=== PATIENT | male | born 1950 | race Two or more races ===

== ENCOUNTER → 2017-01-31 | Outpatient (CLI) | payer MEDICARE | END | disposition home or self-care (01) | LOC: CFH 15:18 | PROVIDERS: ATTEND Physician Assistant Medical | DX: M48.06 Spinal stenosis, lumbar region (principal); M43.27 Fusion of spine, lumbosacral region; M47.897 Other spondylosis, lumbosacral region | CPT/HCPCS: 72131 ==

== ENCOUNTER 2017-09-03 11:49 | Day surgery (SDC) | payer MEDICARE ==
[~2017-09-03] VITALS: Ht 180.3 cm; Wt 80.5 kg
[2017-09-03] MEDS ORDERED: SODIUM CHLORIDE 0.9% 1,000 ML IV SCH (12:29)
[2017-09-03] MEDS ORDERED: TEMAZEPAM PO (12:34)
[2017-09-03] MEDS ORDERED: TRAZODONE PO (12:34)
[2017-09-03] MEDS ORDERED: BACL-19 PO (12:34)
[2017-09-03] MEDS ORDERED: ROPI1TAB PO (12:34)
[2017-09-03] MEDS ORDERED: OXYC10TA47 PO (12:34)
[2017-09-03 12:35] VITALS: BP 174/95
[2017-09-03] MEDS ORDERED: PLEASE ENTER HEIGHT AND WEIGHT MC SCH (13:00)
== END 2017-09-03 16:18 ==
LOC: OUT 11:49
PROVIDERS: ATTEND Physician Assistant
DX: M51.36 Other intervertebral disc degeneration, lumbar region (principal); Z87.891 Personal history of nicotine dependence; Z88.1 Allergy status to other antibiotic agents; Z98.890 Other specified postprocedural states
CPT/HCPCS: 62284; 72110; 72126; Q9967

== ENCOUNTER 2017-09-18 11:46 | Day surgery (SDC) | payer MEDICARE ==
[~2017-09-18] VITALS: Ht 180.3 cm; Wt 80.1 kg
[~2017-09-18 11:46] MED LIST: BACL-19 PO; OXYC10TA47 PO; ROPI1TAB PO; TEMAZEPAM PO; TRAZODONE PO
[2017-09-18] MEDS ORDERED: SODIUM CHLORIDE 0.9% 1,000 ML IV SCH (12:19)
[2017-09-18 12:21] VITALS: BP 107/71
[2017-09-18] MEDS ORDERED: LIDOCAINE-MPF 1%, 5ML ONE ×2 (13:01)
[2017-09-18] MEDS ORDERED: OMNIPAQUE 180 MG/ML, 10ML VIAL ONE (13:56)
== END 2017-09-18 17:05 ==
LOC: OUT 11:46
PROVIDERS: ATTEND Physician Assistant
DX: M51.36 Other intervertebral disc degeneration, lumbar region (principal); M48.061 Spinal stenosis, lumbar region without neurogenic claudication; J45.909 Unspecified asthma, uncomplicated; Z87.39 Personal history of other diseases of the musculoskeletal system and connective tissue; Z98.890 Other specified postprocedural states
CPT/HCPCS: 62284; 72132; J7030; Q9965

== ENCOUNTER → 2017-10-09 | Outpatient (CLI) | payer MEDICARE ==
[~2017-10-09] MED LIST changes: +OXYC-306 PO
[2017-10-09 14:51] LABS: BASOPHILS # (AUTO) 0.05 x10^3/uL (0-0.1); BASOPHILS % (AUTO) 1 % (0-1); EOSINOPHILS # (AUTO) 0.06 x10^3/uL (0-0.4); EOSINOPHILS % (AUTO) 1 % (1-7); LYMPHOCYTES # (AUTO) 1.21 x10^3/uL (1-3.4); LYMPHOCYTES % (AUTO) 12 % (22-44); MD NO; MEAN CORPUSCULAR HEMOGLOBIN 31.7 pg (27.5-34.5); MEAN CORPUSCULAR HGB CONC 34.4 g/dL (33.2-36.2); MEAN CORPUSCULAR VOLUME 92.2 fL (81-97); MEAN PLATELET VOLUME 9.2 fL (7.4-10.4); MONOCYTES # (AUTO) 0.38 x10^3/uL (0.2-0.8); MONOCYTES % (AUTO) 4 % (2-9); NEUTROPHILS # (AUTO) 8.59 x10^3/uL (1.8-6.8); NEUTROPHILS % (AUTO) 84 % (42-75); PLATELET COUNT 256 x10^3/uL (130-400); RED BLOOD COUNT 5.04 x10^6/uL (4.38-5.82); RED CELL DISTRIBUTION WIDTH 13.8 % (9.4-14.8)
[2017-10-09 14:59] LABS: ANION GAP 6 mmol/L (5-15); CALCIUM 9.7 mg/dL (8.5-10.1); CHLORIDE 110 mmol/L (98-107)
[2017-10-09 15:00] LABS: CREATININE 0.77 mg/dL (0.7-1.3)
[2017-10-09 15:08] LABS: INTERNATIONAL NORMALIZED RATIO 1.02 (0.93-1.1); PROTHROMBIN TIME 10.6 Seconds (9.6-11.5)
== END | disposition home or self-care (01) ==
LOC: STAR 13:15
PROVIDERS: ATTEND Neurological Surgery
DX: Z01.818 Encounter for other preprocedural examination (principal); R06.02 Shortness of breath; M51.36 Other intervertebral disc degeneration, lumbar region; M48.061 Spinal stenosis, lumbar region without neurogenic claudication
CPT/HCPCS: 36415; 71046; 80048; 85025; 85610; 85730; 93005

== ENCOUNTER → 2017-10-11 | Outpatient (CLI) | payer MEDICARE ==
[~2017-10-11] MED LIST changes: +ALBU2.5V11 NEB; +DIPH50CA PO; +ONDA8TAB15 PO; +OXYC1TAB7 PO; +SENN-31 PO
[2017-10-11 15:00] LABS: MICROSCOPIC NOT IND
[2017-10-11 15:02] LABS: CULTURE INDICATED? NO
== END | disposition home or self-care (01) ==
LOC: STAR 14:27
PROVIDERS: ATTEND Neurological Surgery
DX: Z01.818 Encounter for other preprocedural examination (principal); M48.061 Spinal stenosis, lumbar region without neurogenic claudication; M51.36 Other intervertebral disc degeneration, lumbar region
CPT/HCPCS: 81003

== ENCOUNTER 2017-10-15 13:33 | Inpatient (IN) | payer MEDICARE ==
[2017-10-09 14:00] VITALS: BP 116/81
[~2017-10-15] VITALS: Ht 180.3 cm; Wt 82.1 kg
[~2017-10-15 13:33] MED LIST changes: -ALBU2.5V11 NEB; +BACITRACIN 50,000 UNIT ONE; +BUPIVACAINE/PF 0.25% ONE; -DIPH50CA PO; +EPINEPHRINE 1 MG/ML, 1ML ONE; +FENTANYL PF 250 MCG/5ML ONE; +MIDAZOLAM 1 MG/ML, 2ML ONE; -ONDA8TAB15 PO; -OXYC1TAB7 PO; -SENN-31 PO; +THROMBIN 5,000 UNIT VIAL TP ONE
[2017-10-15] MEDS ORDERED: FAMOTIDINE 20 MG TABLET PO ONE (14:00)
[2017-10-15] MEDS ORDERED: ACETAMINOPHEN 500 MG TABLET PO ONE (14:00)
[2017-10-15] MEDS ORDERED: METOCLOPRAMIDE 10MG TABLET PO ONE (14:00)
[2017-10-15] MEDS ORDERED: GABAPENTIN 300 MG CAPSULE PO ONE (14:00)
[2017-10-15] MEDS ORDERED: DIAZEPAM 5 MG TABLET PO ONE (14:00)
[2017-10-15] MEDS ORDERED: LACTATED RINGERS 1,000 ML IV SCH (14:16)
[2017-10-15] MEDS ORDERED: EPHEDRINE 50 MG/ML, 1ML ONE (14:32)
[2017-10-15] MEDS ORDERED: SUGAMMADEX 200 MG/2 ML IVPush ONE (14:32)
[2017-10-15] MEDS ORDERED: PROPOFOL 10 MG/ML, 20ML ONE (14:32)
[2017-10-15] MEDS ORDERED: KETAMINE 10 MG/ML, 20ML ONE (14:32)
[2017-10-15] MEDS ORDERED: DEXAMETHASONE 4 MG/ML, 1ML ONE (14:32)
[2017-10-15] MEDS ORDERED: ROCURONIUM 10MG/ML,5ML ONE (14:32)
[2017-10-15] MEDS ORDERED: VANCOMYCIN 1,000 MG ONE (15:15)
[2017-10-15] MEDS ORDERED: BUPIVACAINE/PF 0.25% ONE (15:15)
[2017-10-15] MEDS ORDERED: morphine SULFATE 10 MG/ML, 1ML IVPush PRN (16:00)
[2017-10-15] MEDS ORDERED: DIAZEPAM 5 MG/ML, 2ML IVPush PRN (16:00)
[2017-10-15] MEDS ORDERED: MAGNESIUM HYDROXIDE 8%, 30ML UDC PO PRN (16:00)
[2017-10-15] MEDS ORDERED: ZOLPIDEM 5MG TABLET PO PRN (16:00)
[2017-10-15] MEDS ORDERED: DIPHENHYDRAMINE 50 MG CAPSULE PO PRN (16:00)
[2017-10-15] MEDS ORDERED: PHARMACY MAY ADJ FOR RENAL FX MC PRN (16:00)
[2017-10-15] MEDS ORDERED: ONDANSETRON ODT 8 MG PO PRN (16:00)
[2017-10-15] MEDS ORDERED: HYDROcodone/APAP 5/325 TABLET PO PRN (16:00)
[2017-10-15] MEDS ORDERED: DIPHENHYDRAMINE 50 MG/ML, 1ML IVPush PRN (16:00)
[2017-10-15] MEDS ORDERED: BISACODYL 10 MG SUPP PR PRN (16:00)
[2017-10-15] MEDS ORDERED: PROMETHAZINE 25 MG/ML, 1ML IM PRN (16:00)
[2017-10-15] MEDS ORDERED: ONDANSETRON 2MG/ML, 2ML IVPush PRN (16:00)
[2017-10-15] MEDS ORDERED: OXYcodone 5 MG/5 ML ORAL.SOL UDC PO PRN (16:00)
[2017-10-15] MEDS ORDERED: MORPHINE SULFATE 4 MG/ML, 1ML IVPush PRN (16:00)
[2017-10-15] MEDS ORDERED: ALBUTEROL SULFATE 2.5 MG/3 ML NPPB PRN (16:00)
[2017-10-15] MEDS ORDERED: LABETALOL 5MG/ML, 20ML IVPush PRN (16:00)
[2017-10-15] MEDS ORDERED: OXYcodone 5 MG/5 ML ORAL.SOL UDC ONE ×2 (16:30)
[2017-10-15] MEDS ORDERED: FENTANYL PF 100 MCG/2ML ONE (16:40)
[2017-10-15] MEDS: FENTANYL PF 100 MCG/2ML IV PRN ×2 (16:44→17:10)
[2017-10-15 20:12] VITALS: BP 128/59
[2017-10-15] MEDS: OXYcodone/APAP 5/325MG TABLET PO PRN (20:17)
[2017-10-15] MEDS: ROPINIROLE 1MG TABLET PO SCH (21:50)
[2017-10-15] MEDS: BACLOFEN 10 MG TABLET PO SCH (21:51)
[2017-10-16 00:14] VITALS: BP 102/65
[2017-10-16] MEDS: CEFAZOLIN PMX 1GM/50ML 50 ML IVPB SCH ×2 (00:23→08:15)
[2017-10-16] MEDS: OXYcodone/APAP 5/325MG TABLET PO PRN ×5 (02:35→21:01)
[2017-10-16 04:11] VITALS: BP 103/64
[2017-10-16 05:06] LABS: BASOPHILS % (AUTO) 0 % (0-1); EOSINOPHILS % (AUTO) 0 % (1-7); LYMPHOCYTES # (AUTO) 0.68 x10^3/uL (1-3.4); LYMPHOCYTES % (AUTO) 8 % (22-44); MD NO; MEAN CORPUSCULAR HEMOGLOBIN 31.6 pg (27.5-34.5); MEAN CORPUSCULAR HGB CONC 34.1 g/dL (33.2-36.2); MEAN CORPUSCULAR VOLUME 92.6 fL (81-97); MEAN PLATELET VOLUME 9.8 fL (7.4-10.4); MONOCYTES # (AUTO) 0.27 x10^3/uL (0.2-0.8); MONOCYTES % (AUTO) 3 % (2-9); NEUTROPHILS # (AUTO) 8.09 x10^3/uL (1.8-6.8); NEUTROPHILS % (AUTO) 90 % (42-75); PLATELET COUNT 209 x10^3/uL (130-400); RED BLOOD COUNT 4.47 x10^6/uL (4.38-5.82); RED CELL DISTRIBUTION WIDTH 13.9 % (9.4-14.8)
[2017-10-16 05:15] LABS: CHLORIDE 109 mmol/L (98-107)
[2017-10-16 05:33] LABS: ANION GAP 11 mmol/L (5-15); CALCIUM 9.3 mg/dL (8.5-10.1); CREATININE 0.96 mg/dL (0.7-1.3)
[2017-10-16] MEDS: BACLOFEN 10 MG TABLET PO SCH ×2 (08:14→21:01)
[2017-10-16] MEDS: ROPINIROLE 1MG TABLET PO SCH ×2 (08:14→21:01)
[2017-10-16 08:19] VITALS: BP 108/68
[2017-10-16 12:27] VITALS: BP 100/59
[2017-10-16] MEDS ORDERED: ENOXAPARIN 40 MG/0.4 ML SQ SCH (16:00)
[2017-10-16 19:40] VITALS: BP 123/83
[2017-10-16] MEDS: SENNA/DOCUSATE TABLET PO PRN (22:40)
[2017-10-17 00:51] VITALS: BP 130/76
[2017-10-17 03:38] VITALS: BP 132/86
[2017-10-17 05:59] LABS: BASOPHILS # (AUTO) 0.04 x10^3/uL (0-0.1); BASOPHILS % (AUTO) 0 % (0-1); EOSINOPHILS # (AUTO) 0.03 x10^3/uL (0-0.4); EOSINOPHILS % (AUTO) 0 % (1-7); LYMPHOCYTES # (AUTO) 2.25 x10^3/uL (1-3.4); LYMPHOCYTES % (AUTO) 23 % (22-44); MD NO; MEAN CORPUSCULAR HEMOGLOBIN 31.4 pg (27.5-34.5); MEAN CORPUSCULAR VOLUME 92.4 fL (81-97); MEAN PLATELET VOLUME 9.8 fL (7.4-10.4); MONOCYTES # (AUTO) 0.63 x10^3/uL (0.2-0.8); MONOCYTES % (AUTO) 6 % (2-9); NEUTROPHILS # (AUTO) 6.77 x10^3/uL (1.8-6.8); NEUTROPHILS % (AUTO) 70 % (42-75); PLATELET COUNT 203 x10^3/uL (130-400); RED BLOOD COUNT 4.35 x10^6/uL (4.38-5.82)
[2017-10-17 06:08] LABS: ANION GAP 6 mmol/L (5-15); CALCIUM 8.9 mg/dL (8.5-10.1); CHLORIDE 111 mmol/L (98-107); CREATININE 0.87 mg/dL (0.7-1.3)
[2017-10-17] MEDS: OXYcodone/APAP 5/325MG TABLET PO PRN ×4 (06:09→21:45)
[2017-10-17 08:05] VITALS: BP 129/87
[2017-10-17] MEDS: BACLOFEN 10 MG TABLET PO SCH ×2 (08:17→21:09)
[2017-10-17] MEDS: ROPINIROLE 1MG TABLET PO SCH ×2 (08:17→21:09)
[2017-10-17 10:37] VITALS: BP 133/85
[2017-10-17 10:49] LABS: TROPONIN I < 0.015 ng/mL (0.000-0.045)
[2017-10-17] MEDS ORDERED: HEPARIN 1,000 UNITS/ML, 10ML ONE (14:28)
[2017-10-17] MEDS ORDERED: MIDAZOLAM 1 MG/ML, 5ML ONE (14:28)
[2017-10-17] MEDS ORDERED: FENTANYL PF 100 MCG/2ML ONE (14:28)
[2017-10-17] MEDS ORDERED: TICAGRELOR 90 MG TABLET ONE (14:28)
[2017-10-17] MEDS ORDERED: VERAPAMIL 2.5 MG/ML, 2ML ONE (14:28)
[2017-10-17] MEDS ORDERED: BIVALIRUDIN 250 MG ONE (14:28)
[2017-10-17] MEDS ORDERED: LIDOCAINE 2%, 2ML ONE (14:29)
[2017-10-17 15:44] VITALS: BP 154/87
[2017-10-17 16:19] LABS: TROPONIN I < 0.015 ng/mL (0.000-0.045)
[2017-10-17 20:06] VITALS: BP 135/85
[2017-10-17] MEDS: ATORVASTATIN 80 MG TABLET PO SCH (21:09)
[2017-10-17] MEDS: SENNA/DOCUSATE TABLET PO PRN (21:13)
[2017-10-18 01:37] VITALS: BP 113/69
[2017-10-18 05:36] LABS: BASOPHILS # (AUTO) 0.06 x10^3/uL (0-0.1); BASOPHILS % (AUTO) 1 % (0-1); EOSINOPHILS # (AUTO) 0.08 x10^3/uL (0-0.4); EOSINOPHILS % (AUTO) 1 % (1-7); LYMPHOCYTES # (AUTO) 1.71 x10^3/uL (1-3.4); LYMPHOCYTES % (AUTO) 22 % (22-44); MD NO; MEAN CORPUSCULAR HEMOGLOBIN 31.2 pg (27.5-34.5); MEAN CORPUSCULAR HGB CONC 33.6 g/dL (33.2-36.2); MEAN PLATELET VOLUME 9.6 fL (7.4-10.4); MONOCYTES % (AUTO) 8 % (2-9); NEUTROPHILS # (AUTO) 5.28 x10^3/uL (1.8-6.8); NEUTROPHILS % (AUTO) 68 % (42-75); PLATELET COUNT 204 x10^3/uL (130-400); RED BLOOD COUNT 4.49 x10^6/uL (4.38-5.82); RED CELL DISTRIBUTION WIDTH 14.1 % (9.4-14.8)
[2017-10-18 05:41] LABS: CHLORIDE 108 mmol/L (98-107)
[2017-10-18 05:46] LABS: ANION GAP 7 mmol/L (5-15); CALCIUM 8.5 mg/dL (8.5-10.1); CREATININE 0.89 mg/dL (0.7-1.3)
[2017-10-18] MEDS: OXYcodone/APAP 5/325MG TABLET PO PRN ×4 (05:53→22:10)
[2017-10-18] MEDS: ROPINIROLE 1MG TABLET PO SCH ×2 (09:32→21:42)
[2017-10-18] MEDS: BACLOFEN 10 MG TABLET PO SCH ×2 (09:32→21:42)
[2017-10-18 09:39] VITALS: BP 132/82
[2017-10-18 14:20] VITALS: BP 166/80
[2017-10-18 21:03] VITALS: BP 129/79
[2017-10-18] MEDS ORDERED: MAGNESIUM HYDROXIDE 8%, 30ML UDC PO ONE (21:30)
[2017-10-18] MEDS: ATORVASTATIN 80 MG TABLET PO SCH (21:42)
[2017-10-19 01:27] VITALS: BP 140/93
[2017-10-19 05:02] LABS: BASOPHILS # (AUTO) 0.03 x10^3/uL (0-0.1); BASOPHILS % (AUTO) 0 % (0-1); EOSINOPHILS # (AUTO) 0.11 x10^3/uL (0-0.4); EOSINOPHILS % (AUTO) 2 % (1-7); LYMPHOCYTES # (AUTO) 1.73 x10^3/uL (1-3.4); LYMPHOCYTES % (AUTO) 25 % (22-44); MD NO; MEAN CORPUSCULAR HEMOGLOBIN 31.7 pg (27.5-34.5); MEAN CORPUSCULAR HGB CONC 34.4 g/dL (33.2-36.2); MEAN CORPUSCULAR VOLUME 92.1 fL (81-97); MEAN PLATELET VOLUME 10.1 fL (7.4-10.4); MONOCYTES % (AUTO) 8 % (2-9); NEUTROPHILS # (AUTO) 4.61 x10^3/uL (1.8-6.8); NEUTROPHILS % (AUTO) 65 % (42-75); PLATELET COUNT 212 x10^3/uL (130-400); RED BLOOD COUNT 4.67 x10^6/uL (4.38-5.82); RED CELL DISTRIBUTION WIDTH 13.8 % (9.4-14.8)
[2017-10-19 05:12] LABS: ANION GAP 6 mmol/L (5-15); CALCIUM 8.5 mg/dL (8.5-10.1); CHLORIDE 107 mmol/L (98-107)
[2017-10-19 05:14] LABS: CREATININE 0.71 mg/dL (0.7-1.3)
[2017-10-19] MEDS: OXYcodone/APAP 5/325MG TABLET PO PRN ×4 (08:56→20:48)
[2017-10-19] MEDS: ROPINIROLE 1MG TABLET PO SCH ×2 (08:56→20:48)
[2017-10-19] MEDS: BACLOFEN 10 MG TABLET PO SCH ×2 (08:57→20:48)
[2017-10-19] MEDS ORDERED: MAGNESIUM CITRATE 300ML ORAL SOL PO PRN (09:00)
[2017-10-19 09:16] VITALS: BP 150/79
[2017-10-19] MEDS ORDERED: BISACODYL 10 MG SUPP PR PRN (11:00)
[2017-10-19 13:00] VITALS: BP 115/73
[2017-10-19 20:00] VITALS: BP 117/78
[2017-10-19] MEDS: ATORVASTATIN 80 MG TABLET PO SCH (20:48)
[2017-10-20 01:39] VITALS: BP 151/82
[2017-10-20] MEDS: OXYcodone/APAP 5/325MG TABLET PO PRN ×2 (02:45→09:04)
[2017-10-20 04:53] LABS: BASOPHILS # (AUTO) 0.03 x10^3/uL (0-0.1); BASOPHILS % (AUTO) 0 % (0-1); EOSINOPHILS # (AUTO) 0.21 x10^3/uL (0-0.4); EOSINOPHILS % (AUTO) 2 % (1-7); LYMPHOCYTES # (AUTO) 1.53 x10^3/uL (1-3.4); LYMPHOCYTES % (AUTO) 18 % (22-44); MD NO; MEAN CORPUSCULAR HEMOGLOBIN 31.4 pg (27.5-34.5); MEAN CORPUSCULAR HGB CONC 34.3 g/dL (33.2-36.2); MEAN CORPUSCULAR VOLUME 91.6 fL (81-97); MEAN PLATELET VOLUME 9.9 fL (7.4-10.4); MONOCYTES % (AUTO) 8 % (2-9); NEUTROPHILS # (AUTO) 6.01 x10^3/uL (1.8-6.8); NEUTROPHILS % (AUTO) 71 % (42-75); PLATELET COUNT 216 x10^3/uL (130-400); RED BLOOD COUNT 4.57 x10^6/uL (4.38-5.82); RED CELL DISTRIBUTION WIDTH 13.8 % (9.4-14.8)
[2017-10-20 05:00] LABS: ANION GAP 6 mmol/L (5-15); CHLORIDE 108 mmol/L (98-107); CREATININE 0.93 mg/dL (0.7-1.3)
[2017-10-20 08:21] VITALS: BP 138/78
[2017-10-20] MEDS ORDERED: ALBU2.5V11 NEB (08:30)
[2017-10-20] MEDS ORDERED: DIPH50CA PO (08:32)
[2017-10-20] MEDS ORDERED: ONDA8TAB15 PO (08:33)
[2017-10-20] MEDS ORDERED: OXYC1TAB7 PO (08:34)
[2017-10-20] MEDS ORDERED: SENN-31 PO (08:35)
[2017-10-20] MEDS ORDERED: BACL-19 PO (08:36)
[2017-10-20] MEDS: ROPINIROLE 1MG TABLET PO SCH (09:04)
[2017-10-20] MEDS: BACLOFEN 10 MG TABLET PO SCH (09:05)
== END 2017-10-20 11:15 | disposition home or self-care (01) | DRG 518 ==
LOC: OR 13:33 → ORIP 15:53 → 4NOR 17:57 → 5SO 10-17 09:55
PROVIDERS: ADMIT Neurological Surgery; ATTEND Neurological Surgery
PROC: B01B1ZZ Fluoroscopy of Spinal Cord using Low Osmolar Contrast (ICD-10-PCS; 2017-10-15)
PROC: 00BT0ZZ Excision of Spinal Meninges, Open Approach (ICD-10-PCS; 2017-10-15)
PROC: 01NB0ZZ Release Lumbar Nerve, Open Approach (ICD-10-PCS; principal; 2017-10-15 15:30)
PROC: 4A023N7 Measurement of Cardiac Sampling and Pressure, Left Heart, Percutaneous Approach (ICD-10-PCS; 2017-10-17)
PROC: B2151ZZ Fluoroscopy of Left Heart using Low Osmolar Contrast (ICD-10-PCS; 2017-10-17)
PROC: B2111ZZ Fluoroscopy of Multiple Coronary Arteries using Low Osmolar Contrast (ICD-10-PCS; 2017-10-17)
DX: M48.062 Spinal stenosis, lumbar region with neurogenic claudication (principal); R53.2 Functional quadriplegia; G95.9 Disease of spinal cord, unspecified; I20.0 Unstable angina; E78.5 Hyperlipidemia, unspecified; G89.29 Other chronic pain; M19.90 Unspecified osteoarthritis, unspecified site; M54.16 Radiculopathy, lumbar region; M54.9 Dorsalgia, unspecified; M79.604 Pain in right leg; M79.605 Pain in left leg; M54.5 Low back pain; I10 Essential (primary) hypertension; J45.909 Unspecified asthma, uncomplicated; Z87.891 Personal history of nicotine dependence; Z98.1 Arthrodesis status; Z88.8 Allergy status to other drugs, medicaments and biological substances; Z88.1 Allergy status to other antibiotic agents; Z79.899 Other long term (current) drug therapy; E88.2 Lipomatosis, not elsewhere classified
CPT/HCPCS: 36415; 72100; 80048; 84484; 85025; 93005; 93458; 93970; 99156; C1729; C1769; C1894; J0171; J0583; J0690; J1100; J1644; J1650; J2250; J2704; J3010; J3370; J3490; Q9967

== ENCOUNTER 2018-05-13 08:35 | Observation (INO) | payer MEDICARE ==
[~2018-05-13] VITALS: Ht 182.9 cm; Wt 87.2 kg
[~2018-05-13 08:35] MED LIST changes: +ALBU2.5V11 NEB; -BACITRACIN 50,000 UNIT ONE; -BUPIVACAINE/PF 0.25% ONE; +DIPH50CA PO; -EPINEPHRINE 1 MG/ML, 1ML ONE; -FENTANYL PF 250 MCG/5ML ONE; -MIDAZOLAM 1 MG/ML, 2ML ONE; +ONDA8TAB15 PO; +OXYC1TAB7 PO; +SENN-31 PO; -THROMBIN 5,000 UNIT VIAL TP ONE
--- NOTE | 2018-05-13 09:08 | NUR ---
REPORT TO JANIE BAHENA
--- NOTE | 2018-05-13 09:33 | NUR ---
EXAM BY DR WILLSON. PT IS PAINFREE AT THIS TIME. SKIN EXAMINED. PRESSURE POINTS AT HEELS AND SACRUM APPEAR WNL. SKIN CDI.
[2018-05-13 09:46] LABS: BASOPHILS # (AUTO) 0.04 x10^3/uL (0-0.1); BASOPHILS % (AUTO) 1 % (0-1); EOSINOPHILS % (AUTO) 3 % (1-7); LYMPHOCYTES % (AUTO) 20 % (22-44); MD NO; MEAN CORPUSCULAR HEMOGLOBIN 32.1 pg (27.5-34.5); MEAN CORPUSCULAR HGB CONC 33.6 g/dL (33.2-36.2); MEAN CORPUSCULAR VOLUME 95.6 fL (81-97); MEAN PLATELET VOLUME 8.8 fL (7.4-10.4); MONOCYTES # (AUTO) 0.56 x10^3/uL (0.2-0.8); MONOCYTES % (AUTO) 8 % (2-9); NEUTROPHILS # (AUTO) 4.82 x10^3/uL (1.8-6.8); NEUTROPHILS % (AUTO) 69 % (42-75); PLATELET COUNT 234 x10^3/uL (130-400); RED CELL DISTRIBUTION WIDTH 13.8 % (9.4-14.8)
[2018-05-13 09:56] LABS: INTERNATIONAL NORMALIZED RATIO 1.03 (0.93-1.1); PROTHROMBIN TIME 10.9 Seconds (9.6-11.5)
[2018-05-13 09:57] LABS: ALANINE AMINOTRANSFERASE 45 U/L (12-78); ALBUMIN 3.7 g/dL (3.4-5.0); ANION GAP 7 mmol/L (5-15); CALCIUM 8.8 mg/dL (8.5-10.1); CHLORIDE 111 mmol/L (98-107); CREATININE 0.75 mg/dL (0.7-1.3)
[2018-05-13 10:02] LABS: ALKALINE PHOSPHATASE 98 U/L (45-117); BILIRUBIN,TOTAL 0.4 mg/dL (0.2-1.0); TOTAL PROTEIN 6.6 g/dL (6.4-8.2); TROPONIN I < 0.015 ng/mL (0.000-0.045)
[2018-05-13] MEDS ORDERED: OXYcodone/APAP 5/325MG TABLET ONE (10:48)
--- NOTE | 2018-05-13 10:51 | NUR ---
PT REQUESTING PAIN MEDICATION FOR CHRONIC BACK PAIN. PERCOCET ORD'D AND GIVEN. VSS. PLAN FOR ADMISSION. PT REMAINS PAIN FREE.
[2018-05-13] MEDS ORDERED: OXYcodone/APAP 5/325MG TABLET PO ONE (11:00)
[2018-05-13] MEDS ORDERED: BACLOFEN 10 MG TABLET PO SCH (11:30)
[2018-05-13] MEDS ORDERED: ONDANSETRON 8 MG TABLET PO PRN (12:00)
[2018-05-13] MEDS ORDERED: DIPHENHYDRAMINE 50 MG CAPSULE PO PRN (12:00)
[2018-05-13] MEDS ORDERED: BACLOFEN 10 MG TABLET PO PRN (12:00)
--- NOTE | 2018-05-13 12:09 | NUR ---
REPORT CALLED TO MARGARITA BAHENA
[2018-05-13] MEDS ORDERED: ACETAMINOPHEN 325 MG TABLET PO PRN (12:30)
[2018-05-13] MEDS ORDERED: ONDANSETRON 2MG/ML, 2ML IVPush PRN (12:30)
[2018-05-13] MEDS ORDERED: POLYETHYLENE GLYCOL 17 GM PACKET PO PRN (12:30)
[2018-05-13] MEDS ORDERED: BISACODYL 10 MG SUPP PR PRN (12:30)
[2018-05-13] MEDS ORDERED: DOCUSATE 100 MG CAPSULE PO PRN (12:30)
[2018-05-13] MEDS ORDERED: hydrALAzine 20 MG/ML, 1ML IVPush PRN (12:30)
[2018-05-13 12:51] LABS: HEMOGLOBIN A1C 5.5 % (4.2-6.3)
[2018-05-13 13:01] LABS: FREE T4 (FREE THYROXINE) 1.06 ng/dL (0.76-1.46); TROPONIN I < 0.015 ng/mL (0.000-0.045)
[2018-05-13 13:07] LABS: THYROID STIMULATING HORMONE 0.855 mIU/L (0.358-3.740)
[2018-05-13] MEDS: ENOXAPARIN 40 MG/0.4 ML SQ SCH (13:31)
[2018-05-13 15:32] VITALS: BP 152/87
[2018-05-13] MEDS: OXYcodone/APAP 5/325MG TABLET PO PRN ×2 (16:47→21:28)
[2018-05-13] MEDS ORDERED: TEMAZEPAM 15 MG CAPSULE PO PRN (17:30)
[2018-05-13 18:46] LABS: TROPONIN I < 0.015 ng/mL (0.000-0.045)
[2018-05-13 20:15] VITALS: BP 118/80
[2018-05-13] MEDS: FAMOTIDINE 20 MG TABLET PO SCH (21:19)
[2018-05-13] MEDS: ROPINIROLE 1MG TABLET PO SCH (21:19)
[2018-05-14 00:22] VITALS: BP 126/71
[2018-05-14] MEDS: OXYcodone/APAP 5/325MG TABLET PO PRN ×3 (02:41→12:47)
[2018-05-14 05:52] LABS: BASOPHILS # (AUTO) 0.03 x10^3/uL (0-0.1); BASOPHILS % (AUTO) 0 % (0-1); EOSINOPHILS # (AUTO) 0.27 x10^3/uL (0-0.4); EOSINOPHILS % (AUTO) 3 % (1-7); LYMPHOCYTES # (AUTO) 1.63 x10^3/uL (1-3.4); LYMPHOCYTES % (AUTO) 20 % (22-44); MD NO; MEAN CORPUSCULAR HEMOGLOBIN 32.5 pg (27.5-34.5); MEAN CORPUSCULAR HGB CONC 34.1 g/dL (33.2-36.2); MEAN CORPUSCULAR VOLUME 95.4 fL (81-97); MEAN PLATELET VOLUME 9.4 fL (7.4-10.4); MONOCYTES # (AUTO) 0.63 x10^3/uL (0.2-0.8); MONOCYTES % (AUTO) 8 % (2-9); NEUTROPHILS % (AUTO) 69 % (42-75); PLATELET COUNT 229 x10^3/uL (130-400); RED BLOOD COUNT 4.39 x10^6/uL (4.38-5.82)
[2018-05-14] MEDS ORDERED: ASPIRIN 325 MG TABLET EC PO SCH (06:00)
[2018-05-14 06:09] LABS: CHLORIDE 110 mmol/L (98-107)
[2018-05-14 06:16] LABS: ANION GAP 8 mmol/L (5-15); CALCIUM 8.6 mg/dL (8.5-10.1); CREATININE 0.79 mg/dL (0.7-1.3)
[2018-05-14 07:28] VITALS: BP 141/71
[2018-05-14] MEDS: ROPINIROLE 1MG TABLET PO SCH (08:38)
[2018-05-14] MEDS: FAMOTIDINE 20 MG TABLET PO SCH (08:38)
[2018-05-14] MEDS ORDERED: SODIUM CHLORIDE 0.9% 250 ML IV ONE (09:00)
[2018-05-14] MEDS ORDERED: SENNA/DOCUSATE TABLET PO SCH (09:00)
[2018-05-14] MEDS ORDERED: TAMSULOSIN 0.4 MG CAP.ER.24H PO SCH (09:00)
[2018-05-14] MEDS ORDERED: OMNIPAQUE 350 MG/ML, 100ML BOTTLE ONE (10:11)
[2018-05-14 12:42] VITALS: BP 134/81
[2018-05-14] MEDS: ENOXAPARIN 40 MG/0.4 ML SQ SCH (12:46)
[2018-05-14] MEDS ORDERED: FAMO20TA7 PO (14:38)
== END 2018-05-14 17:06 ==
LOC: ED 09:30 → INTOOBSV 11:29 → UNDOADMOB 11:29 → EDIP 11:29 → 5SO 12:26 → EDIP 12:26 → 5SO 12:26 → UNDODISOB 05-14 17:06
PROVIDERS: ADMIT Internal Medicine; ATTEND Internal Medicine
DX: R07.89 Other chest pain (principal); G89.29 Other chronic pain; M54.2 Cervicalgia; M54.9 Dorsalgia, unspecified; J45.909 Unspecified asthma, uncomplicated; Z82.49 Family history of ischemic heart disease and other diseases of the circulatory system; Z87.891 Personal history of nicotine dependence; Z99.3 Dependence on wheelchair
CPT/HCPCS: 36415; 71045; 71275; 80048; 80053; 83036; 83690; 83880; 84439; 84443; 84484; 85025; 85379; 85610; 85730; 93005; 93306; 93970; 96372; 97162; 99284; G0378; G8978; G8979; G8990; J1650; J7050; Q9967; 99285

== ENCOUNTER 2018-05-21 10:03 | Day surgery (SDC) | payer MEDICARE, MEDICAID ==
[~2018-05-21] VITALS: Ht 182.9 cm; Wt 82.6 kg
[~2018-05-21 10:03] MED LIST changes: +FAMO20TA7 PO
[2018-05-21] MEDS ORDERED: SODIUM CHLORIDE 0.9% 1,000 ML IV SCH (10:27)
[2018-05-21] MEDS ORDERED: BACL-19 PO (10:55)
[2018-05-21] MEDS ORDERED: OXYC-307 PO (10:55)
[2018-05-21] MEDS ORDERED: TRAZ-137 PO (10:56)
[2018-05-21] MEDS ORDERED: FAMO-79 PO (10:59)
[2018-05-21 11:00] VITALS: BP 149/84
[2018-05-21] MEDS ORDERED: PLEASE ENTER HEIGHT AND WEIGHT MC SCH (11:00)
[2018-05-21] MEDS ORDERED: LIDOCAINE-MPF 1%, 5ML ONE (11:53)
[2018-05-21] MEDS ORDERED: OXYcodone/APAP 10/325MG TABLET PO ONE (13:30)
[2018-05-21] MEDS ORDERED: OXYcodone/APAP 10/325MG TABLET ONE (14:07)
== END 2018-05-21 17:20 | disposition home or self-care (01) ==
LOC: OUT 10:03
PROVIDERS: ATTEND Physician Assistant
DX: M54.5 Low back pain (principal); M54.12 Radiculopathy, cervical region; Z98.890 Other specified postprocedural states; Z72.89 Other problems related to lifestyle; Z88.1 Allergy status to other antibiotic agents
CPT/HCPCS: 62270; 62284; 72126; 72129; 72132; 77003; J7030; Q9967

== ENCOUNTER 2018-06-16 16:28 | Inpatient (IN) | payer MEDICARE, MEDICAID ==
[~2018-06-16] VITALS: Ht 182.9 cm; Wt 88.6 kg
[~2018-06-16 16:28] MED LIST changes: +FAMO-79 PO; +OXYC-307 PO; +TRAZ-137 PO
--- NOTE | 2018-06-16 16:55 | NUR ---
Pt BIB [facility] from [place] for low O2 Sat in the 70s and temp of 100.8. pt had low back surgery and had a nerve stimulator remobed. pt is alert, oriented, with NAD. BP 112/82, HR 80, O2Sat 97% 2L. FS 181. low back incision has no signs of infection. Pt is connected to the monitor. Call light within reach.
[2018-06-16 17:08] LABS: BASOPHILS # (AUTO) 0.03 x10^3/uL (0-0.1); BASOPHILS % (AUTO) 0 % (0-1); EOSINOPHILS # (AUTO) 0.15 x10^3/uL (0-0.4); EOSINOPHILS % (AUTO) 2 % (1-7); LYMPHOCYTES # (AUTO) 1.11 x10^3/uL (1-3.4); LYMPHOCYTES % (AUTO) 12 % (22-44); MD NO; MEAN CORPUSCULAR HEMOGLOBIN 32.1 pg (27.5-34.5); MEAN CORPUSCULAR VOLUME 94.4 fL (81-97); MEAN PLATELET VOLUME 9.4 fL (7.4-10.4); MONOCYTES % (AUTO) 7 % (2-9); NEUTROPHILS # (AUTO) 7.53 x10^3/uL (1.8-6.8); NEUTROPHILS % (AUTO) 79 % (42-75); PLATELET COUNT 236 x10^3/uL (130-400); RED BLOOD COUNT 4.16 x10^6/uL (4.38-5.82)
[2018-06-16 17:19] LABS: INTERNATIONAL NORMALIZED RATIO 1.06 (0.93-1.1); PROTHROMBIN TIME 11.2 Seconds (9.6-11.5)
[2018-06-16 17:21] LABS: ALANINE AMINOTRANSFERASE 27 U/L (12-78); ALBUMIN 2.7 g/dL (3.4-5.0); ANION GAP 8 mmol/L (5-15); CALCIUM 8.4 mg/dL (8.5-10.1); CHLORIDE 108 mmol/L (98-107); CREATININE 0.73 mg/dL (0.7-1.3)
[2018-06-16 17:24] LABS: ALKALINE PHOSPHATASE 99 U/L (45-117); BILIRUBIN,TOTAL 0.4 mg/dL (0.2-1.0); TOTAL PROTEIN 5.9 g/dL (6.4-8.2)
[2018-06-16 17:41] LABS: RAPID INFLUENZA A Negative (Negative); RAPID INFLUENZA B Negative (Negative)
--- NOTE | 2018-06-16 18:10 | NUR ---
PT TAKEN TO CT.
--- NOTE | 2018-06-16 18:26 | NUR ---
pt is resting in bed, watchig TV, respirations equal and non labored. NAD. Pt is connected to the monitor. Call light within reach.
[2018-06-16] MEDS ORDERED: SODIUM CHLORIDE 0.9%, 500ML IVBOLUS ONE (18:30)
--- NOTE | 2018-06-16 18:36 | NUR ---
Pt is aware of the need for a urine sample. He stated that he does not have to go at this time.
--- NOTE | 2018-06-16 18:49 | NUR ---
Report given to Darren BAHENA.
[2018-06-16] MEDS ORDERED: OXYcodone/APAP 10/325MG TABLET ONE (19:31)
--- NOTE | 2018-06-16 20:15 | NUR ---
pt medicated per jul. poc discussed. pt given apple juice and sprite per request. pt denies further needs at this time.
[2018-06-16] MEDS ORDERED: OXYcodone/APAP 10/325MG TABLET PO ONE (20:30)
[2018-06-16] MEDS ORDERED: ACETAMINOPHEN 325 MG TABLET PO PRN (22:00)
[2018-06-16] MEDS ORDERED: DOCUSATE 100 MG CAPSULE PO PRN (22:00)
[2018-06-16] MEDS ORDERED: DIPHENHYDRAMINE 50 MG CAPSULE PO PRN (22:00)
[2018-06-16] MEDS ORDERED: ONDANSETRON ODT 4 MG PO PRN (22:00)
[2018-06-16] MEDS ORDERED: BISACODYL 10 MG SUPP PR PRN (22:00)
[2018-06-16] MEDS ORDERED: hydrALAzine 20 MG/ML, 1ML IVPush PRN (22:00)
[2018-06-16] MEDS ORDERED: LIDODERM 5% PATCH TD PRN (22:00)
[2018-06-16] MEDS: BACLOFEN 10 MG TABLET PO SCH (22:27)
[2018-06-16] MEDS: TRAZODONE 50MG TABLET PO SCH (22:27)
[2018-06-16] MEDS: ROPINIROLE 1MG TABLET PO SCH (22:40)
[2018-06-16 23:11] LABS: MICROSCOPIC NOT IND
[2018-06-16 23:18] LABS: CULTURE INDICATED? NO
[2018-06-16] MEDS ORDERED: OMNIPAQUE 350 MG/ML, 100ML BOTTLE ONE (23:34)
[2018-06-17] MEDS: CEFTRIAXONE PMX 1GM/50ML 50 ML IV SCH (00:15)
[2018-06-17] MEDS: OXYcodone/APAP 10/325MG TABLET PO SCH ×4 (00:15→21:03)
[2018-06-17 00:30] VITALS: BP 125/77
[2018-06-17] MEDS ORDERED: ALBUTEROL SULFATE 2.5 MG/3 ML NPPB PRN (01:00)
[2018-06-17 06:09] LABS: BASOPHILS # (AUTO) 0.04 x10^3/uL (0-0.1); BASOPHILS % (AUTO) 1 % (0-1); EOSINOPHILS # (AUTO) 0.12 x10^3/uL (0-0.4); EOSINOPHILS % (AUTO) 2 % (1-7); LYMPHOCYTES # (AUTO) 1.59 x10^3/uL (1-3.4); LYMPHOCYTES % (AUTO) 20 % (22-44); MD NO; MEAN CORPUSCULAR HEMOGLOBIN 32.3 pg (27.5-34.5); MEAN CORPUSCULAR HGB CONC 34.5 g/dL (33.2-36.2); MEAN CORPUSCULAR VOLUME 93.6 fL (81-97); MEAN PLATELET VOLUME 9.1 fL (7.4-10.4); MONOCYTES % (AUTO) 10 % (2-9); NEUTROPHILS # (AUTO) 5.53 x10^3/uL (1.8-6.8); NEUTROPHILS % (AUTO) 68 % (42-75); PLATELET COUNT 218 x10^3/uL (130-400); RED BLOOD COUNT 3.78 x10^6/uL (4.38-5.82); RED CELL DISTRIBUTION WIDTH 12.6 % (9.4-14.8)
[2018-06-17 06:22] LABS: ANION GAP 4 mmol/L (5-15); CALCIUM 8.8 mg/dL (8.5-10.1); CHLORIDE 109 mmol/L (98-107)
[2018-06-17 06:23] LABS: CREATININE 0.67 mg/dL (0.7-1.3)
[2018-06-17 06:40] VITALS: BP 126/82
[2018-06-17] MEDS: INSULIN LISPRO 100 UNITS/ML, PEN SQ-INSULIN SCH ×4 (07:00→21:00)
[2018-06-17] MEDS: SENNA/DOCUSATE TABLET PO SCH (09:36)
[2018-06-17] MEDS: BACLOFEN 10 MG TABLET PO SCH ×3 (09:36→21:03)
[2018-06-17] MEDS: ROPINIROLE 1MG TABLET PO SCH ×2 (09:36→21:03)
[2018-06-17] MEDS: FAMOTIDINE 20 MG TABLET PO SCH (09:36)
[2018-06-17 10:00] VITALS: BP 134/75
[2018-06-17 10:37] LABS: TROPONIN I < 0.015 ng/mL (0.000-0.045)
[2018-06-17 13:33] LABS: TROPONIN I < 0.015 ng/mL (0.000-0.045)
[2018-06-17 15:50] VITALS: BP 130/68
[2018-06-17] MEDS ORDERED: GADOBUTROL 10 MMOL/10 ML PFS ONE (17:22)
[2018-06-17 18:35] LABS: TROPONIN I < 0.015 ng/mL (0.000-0.045)
[2018-06-17 19:50] VITALS: BP 119/78
[2018-06-17] MEDS: TRAZODONE 50MG TABLET PO SCH (21:03)
[2018-06-18] MEDS: CEFTRIAXONE PMX 1GM/50ML 50 ML IV SCH
[2018-06-18 01:14] VITALS: BP 90/58
[2018-06-18 06:16] LABS: ALANINE AMINOTRANSFERASE 26 U/L (12-78); ALBUMIN 2.6 g/dL (3.4-5.0); ANION GAP 5 mmol/L (5-15); CALCIUM 9.4 mg/dL (8.5-10.1); CHLORIDE 111 mmol/L (98-107); CREATININE 0.68 mg/dL (0.7-1.3)
[2018-06-18 06:19] LABS: ALKALINE PHOSPHATASE 106 U/L (45-117); BILIRUBIN,TOTAL 0.4 mg/dL (0.2-1.0); TOTAL PROTEIN 5.9 g/dL (6.4-8.2)
[2018-06-18 06:28] LABS: BASOPHILS # (AUTO) 0.05 x10^3/uL (0-0.1); BASOPHILS % (AUTO) 1 % (0-1); EOSINOPHILS # (AUTO) 0.13 x10^3/uL (0-0.4); EOSINOPHILS % (AUTO) 1 % (1-7); LYMPHOCYTES # (AUTO) 1.18 x10^3/uL (1-3.4); LYMPHOCYTES % (AUTO) 13 % (22-44); MD NO; MEAN CORPUSCULAR HEMOGLOBIN 32.4 pg (27.5-34.5); MEAN CORPUSCULAR HGB CONC 34.4 g/dL (33.2-36.2); MEAN CORPUSCULAR VOLUME 94.2 fL (81-97); MEAN PLATELET VOLUME 9.3 fL (7.4-10.4); MONOCYTES # (AUTO) 0.73 x10^3/uL (0.2-0.8); MONOCYTES % (AUTO) 8 % (2-9); NEUTROPHILS # (AUTO) 7.24 x10^3/uL (1.8-6.8); NEUTROPHILS % (AUTO) 78 % (42-75); PLATELET COUNT 220 x10^3/uL (130-400); RED BLOOD COUNT 4.38 x10^6/uL (4.38-5.82); RED CELL DISTRIBUTION WIDTH 13.1 % (9.4-14.8)
[2018-06-18] MEDS: INSULIN LISPRO 100 UNITS/ML, PEN SQ-INSULIN SCH ×3 (07:00→15:45)
[2018-06-18 07:24] VITALS: BP 96/62
[2018-06-18] MEDS: SENNA/DOCUSATE TABLET PO SCH (09:15)
[2018-06-18] MEDS: BACLOFEN 10 MG TABLET PO SCH ×2 (09:15→15:46)
[2018-06-18] MEDS: ROPINIROLE 1MG TABLET PO SCH (09:15)
[2018-06-18] MEDS: FAMOTIDINE 20 MG TABLET PO SCH (09:15)
[2018-06-18] MEDS: OXYcodone/APAP 10/325MG TABLET PO SCH ×2 (09:15→15:46)
[2018-06-18] MEDS ORDERED: KETOROLAC 30 MG/1 ML IVPush ONE (13:00)
[2018-06-18 13:39] LABS: HCT (SEDRATE) 38.6 % (39.2-51.8)
[2018-06-18 14:05] VITALS: BP 94/59
== END 2018-06-18 16:15 | DRG 189 ==
LOC: ED 16:43 → EDIP 19:37 → 3NE 21:05 → 5SO 06-17 10:07
PROVIDERS: ADMIT Hospitalist; ATTEND Hospitalist
DX: J96.01 Acute respiratory failure with hypoxia (principal); J90 Pleural effusion, not elsewhere classified; M48.56XA Collapsed vertebra, not elsewhere classified, lumbar region, initial encounter for fracture; G89.29 Other chronic pain; J45.909 Unspecified asthma, uncomplicated; R73.9 Hyperglycemia, unspecified; R07.89 Other chest pain; M46.46 Discitis, unspecified, lumbar region; Z74.01 Bed confinement status; Z82.49 Family history of ischemic heart disease and other diseases of the circulatory system; Z87.891 Personal history of nicotine dependence; Z88.1 Allergy status to other antibiotic agents
CPT/HCPCS: 36415; 71045; 71275; 72158; 74018; 80048; 80053; 81003; 82962; 83605; 84145; 84484; 85025; 85610; 85651; 85730; 86140; 87040; 87400; 93005; 93308; 93325; 93970; 99285; A9585; G0378; J0696; J1885; Q9967; J7040

== ENCOUNTER 2018-10-21 15:51 | Inpatient (IN) | payer MEDICARE, MEDICAID ==
[~2018-10-21] VITALS: Ht 182.9 cm; Wt 82.0 kg
--- NOTE | 2018-10-21 16:04 | NUR ---
MISHA URBINA from [facility]-Pt states unable to move or feel bilat LEs x1 week. Pt has hx of multiple back surgeries, states that he has been wheelchair bound since his most recent back surgery in May of this year. Pt denies pain currently. Pt states that prior to last week he had been able to transfer from bed to wheelchair with assistance and was in the rehab facillity to learn how to walk again. Pt's bilat LEs unable to move, dependent edema noted to bilat LEs. Pulses intact. Pt positioned for comfort in bed with warm blanket. Continuous oxygen and BP monitors applied, all safety measures observed.
[2018-10-21] MEDS ORDERED: OXYcodone/APAP 5/325MG TABLET ONE (16:18)
--- NOTE | 2018-10-21 16:27 | NUR ---
Pt medicated per JUL, to MRI via [facility].
[2018-10-21] MEDS ORDERED: OXYcodone/APAP 5/325MG TABLET PO ONE (16:30)
[2018-10-21] MEDS ORDERED: SODIUM CHLORIDE FLUSH 10ML SYR IVF ONE (16:30)
[2018-10-21 16:58] LABS: BASOPHILS # (AUTO) 0.05 x10^3/uL (0-0.1); BASOPHILS % (AUTO) 1 % (0-1); EOSINOPHILS # (AUTO) 0.16 x10^3/uL (0-0.4); EOSINOPHILS % (AUTO) 2 % (1-7); LYMPHOCYTES # (AUTO) 1.41 x10^3/uL (1-3.4); LYMPHOCYTES % (AUTO) 19 % (22-44); MD NO; MEAN CORPUSCULAR HEMOGLOBIN 30.9 pg (27.5-34.5); MEAN CORPUSCULAR HGB CONC 33.1 g/dL (33.2-36.2); MEAN CORPUSCULAR VOLUME 93.4 fL (81-97); MEAN PLATELET VOLUME 9.7 fL (7.4-10.4); MONOCYTES % (AUTO) 8 % (2-9); NEUTROPHILS # (AUTO) 5.13 x10^3/uL (1.8-6.8); NEUTROPHILS % (AUTO) 70 % (42-75); PLATELET COUNT 207 x10^3/uL (130-400); RED BLOOD COUNT 5.04 x10^6/uL (4.38-5.82); RED CELL DISTRIBUTION WIDTH 15.4 % (9.4-14.8)
[2018-10-21] MEDS ORDERED: GADOBUTROL 10 MMOL/10 ML PFS ONE (17:02)
[2018-10-21 17:11] LABS: ALANINE AMINOTRANSFERASE 46 U/L (12-78); ALBUMIN 3.7 g/dL (3.4-5.0); ANION GAP 4 mmol/L (5-15); CHLORIDE 109 mmol/L (98-107); CREATININE 0.74 mg/dL (0.7-1.3)
[2018-10-21 17:15] LABS: ALKALINE PHOSPHATASE 114 U/L (45-117); BILIRUBIN,TOTAL 0.5 mg/dL (0.2-1.0); TOTAL PROTEIN 6.8 g/dL (6.4-8.2)
--- NOTE | 2018-10-21 17:26 | NUR ---
SB[facility] RPT REC'D FROM JOSEF CHENEY. PT CARE ASSUMED. PT RTD FROM MRI, CALL LIGHT W/I REACH. PT REQUESTING TO EAT, INSTRUCTED PT TO REFRAIN FROM EATING OR DRINKING UNTIL ALL TEST RESULTS ARE FINAL. PT VERBALIZES UNDERSTANDING.
[2018-10-21 17:45] LABS: HCT (SEDRATE) 38.6 % (39.2-51.8)
--- NOTE | 2018-10-21 18:04 | NUR ---
PT MOVED ONTO A HOSPITAL BED FOR COMFORT. CALL IGHT W/I REACH, VSS. DR. KEYS AT BEDSIDE, POC DISCUSSED AND QUESTIONS ANSWERED.
[2018-10-21] MEDS ORDERED: SODIUM CHLORIDE FLUSH 10ML SYR IVF PRN (19:00)
--- NOTE | 2018-10-21 19:05 | NUR ---
RECEIVED BS REPORT FROM JOSEF CHRISTENSEN TO ASSUME CARE OF PT. PT. PROVIDED WITH DINNER TRAY. PT. IS ON HOSPITAL BED AWAITING PLACEMENT UPSTAIRS. JOSEF CHRISTENSEN HAD PREVIOUSLY CLEANED UP URINE INCONTINENCE PER HER REPORT. PT. IS ON CONTINUOUS MONITORS. CALL LIGHT IN REACH. ALL SAFEY MEASURES OBSERVED.
--- NOTE | 2018-10-21 19:44 | NUR ---
REPORT TO JOSEF GONZALEZ. FLOOR READY FOR PT. TRANSPORT AND AWARE THAT PT. IS ON HOSPITAL BED.
--- NOTE | 2018-10-21 19:53 | NUR ---
[facility] AT TO EVAL PT. FOR ADMISSION.
[2018-10-21] MEDS ORDERED: POLYETHYLENE GLYCOL 17 GM PACKET PO PRN (21:00)
[2018-10-21] MEDS ORDERED: DOCUSATE 100 MG CAPSULE PO PRN (21:00)
[2018-10-21] MEDS ORDERED: LIDODERM 5% PATCH TD PRN (21:00)
[2018-10-21] MEDS ORDERED: hydrALAzine 20 MG/ML, 1ML IVPush PRN (21:00)
[2018-10-21] MEDS ORDERED: PREG150C PO (21:44)
[2018-10-21] MEDS: TRAZODONE 50MG TABLET PO SCH (22:22)
[2018-10-21] MEDS: HEPARIN 5,000 UNITS/ML, 1ML SQ SCH (22:22)
[2018-10-21] MEDS: ROPINIROLE 1MG TABLET PO SCH (22:24)
[2018-10-21] MEDS: PREGABALIN 150 MG CAPSULE PO SCH (22:24)
[2018-10-21] MEDS ORDERED: OXYcodone/APAP 10/325MG TABLET PO ONE (23:30)
[2018-10-22 01:20] VITALS: BP 107/69
[2018-10-22 05:15] LABS: MICROSCOPIC INDICATED
[2018-10-22 05:21] LABS: CULTURE INDICATED? YES
[2018-10-22 05:41] LABS: BASOPHILS # (AUTO) 0.04 x10^3/uL (0-0.1); BASOPHILS % (AUTO) 1 % (0-1); EOSINOPHILS # (AUTO) 0.12 x10^3/uL (0-0.4); EOSINOPHILS % (AUTO) 2 % (1-7); LYMPHOCYTES # (AUTO) 1.33 x10^3/uL (1-3.4); LYMPHOCYTES % (AUTO) 20 % (22-44); MD NO; MEAN CORPUSCULAR HEMOGLOBIN 31.3 pg (27.5-34.5); MEAN CORPUSCULAR HGB CONC 33.5 g/dL (33.2-36.2); MEAN CORPUSCULAR VOLUME 93.6 fL (81-97); MEAN PLATELET VOLUME 10.1 fL (7.4-10.4); MONOCYTES # (AUTO) 0.54 x10^3/uL (0.2-0.8); MONOCYTES % (AUTO) 8 % (2-9); NEUTROPHILS # (AUTO) 4.65 x10^3/uL (1.8-6.8); NEUTROPHILS % (AUTO) 70 % (42-75); PLATELET COUNT 195 x10^3/uL (130-400); RED BLOOD COUNT 4.65 x10^6/uL (4.38-5.82); RED CELL DISTRIBUTION WIDTH 14.8 % (9.4-14.8)
[2018-10-22] MEDS: OXYcodone/APAP 10/325MG TABLET PO SCH ×2 (05:43→11:25)
[2018-10-22] MEDS: HEPARIN 5,000 UNITS/ML, 1ML SQ SCH ×3 (05:43→23:00)
[2018-10-22 05:54] LABS: ANION GAP 5 mmol/L (5-15); CALCIUM 8.9 mg/dL (8.5-10.1); CHLORIDE 111 mmol/L (98-107)
[2018-10-22 06:05] LABS: CREATININE 0.72 mg/dL (0.7-1.3)
[2018-10-22 07:15] VITALS: BP 102/66
[2018-10-22] MEDS ORDERED: GADOBUTROL 10 MMOL/10 ML PFS ONE (09:53)
[2018-10-22] MEDS: FAMOTIDINE 20 MG TABLET PO SCH (10:27)
[2018-10-22] MEDS: SENNA/DOCUSATE TABLET PO SCH (10:27)
[2018-10-22] MEDS: PREGABALIN 150 MG CAPSULE PO SCH ×2 (10:27→21:10)
[2018-10-22] MEDS: ROPINIROLE 1MG TABLET PO SCH ×2 (10:27→21:10)
[2018-10-22] MEDS: ONDANSETRON ODT 4 MG PO PRN (11:25)
[2018-10-22 15:18] VITALS: BP 97/68
[2018-10-22] MEDS: OXYcodone/APAP 10/325MG TABLET PO PRN ×2 (16:20→21:10)
[2018-10-22 20:09] VITALS: BP 121/75
[2018-10-22] MEDS: TRAZODONE 50MG TABLET PO SCH (21:10)
[2018-10-23 00:34] VITALS: BP 122/76
[2018-10-23] MEDS: HEPARIN 5,000 UNITS/ML, 1ML SQ SCH ×3 (06:01→23:41)
[2018-10-23] MEDS: OXYcodone/APAP 10/325MG TABLET PO PRN ×5 (06:02→23:41)
[2018-10-23 07:06] VITALS: BP 95/66
[2018-10-23] MEDS: SENNA/DOCUSATE TABLET PO SCH (07:38)
[2018-10-23] MEDS: PREGABALIN 150 MG CAPSULE PO SCH ×2 (07:38→21:02)
[2018-10-23] MEDS: ROPINIROLE 1MG TABLET PO SCH ×2 (07:38→21:02)
[2018-10-23] MEDS: FAMOTIDINE 20 MG TABLET PO SCH (07:38)
[2018-10-23] MEDS: ACETAMINOPHEN 325 MG TABLET PO PRN (07:39)
[2018-10-23] MEDS ORDERED: DEXAMETHASONE 4 MG/ML, 5ML IV ONE (09:00)
[2018-10-23] MEDS ORDERED: DEXAMETHASONE 4 MG/ML, 1ML ONE (10:12)
[2018-10-23] MEDS: INSULIN LISPRO 100 UNITS/ML, PEN SQ-INSULIN SCH ×3 (11:30→23:49)
[2018-10-23 13:03] VITALS: BP 100/65
[2018-10-23] MEDS: DEXAMETHASONE 4 MG/ML, 1ML IV SCH ×2 (15:22→21:02)
[2018-10-23 19:48] VITALS: BP 108/67
[2018-10-23] MEDS: TRAZODONE 50MG TABLET PO SCH (21:02)
[2018-10-24 00:43] VITALS: BP 121/74
[2018-10-24] MEDS: DEXAMETHASONE 4 MG/ML, 1ML IV SCH ×4 (03:14→21:29)
[2018-10-24] MEDS: OXYcodone/APAP 10/325MG TABLET PO PRN ×4 (05:44→18:36)
[2018-10-24 06:31] VITALS: BP 116/75
[2018-10-24] MEDS: INSULIN LISPRO 100 UNITS/ML, PEN SQ-INSULIN SCH ×4 (08:24→21:37)
[2018-10-24] MEDS: PREGABALIN 150 MG CAPSULE PO SCH ×2 (08:26→21:28)
[2018-10-24] MEDS: HEPARIN 5,000 UNITS/ML, 1ML SQ SCH ×3 (08:26→21:29)
[2018-10-24] MEDS: FAMOTIDINE 20 MG TABLET PO SCH (08:26)
[2018-10-24] MEDS: SENNA/DOCUSATE TABLET PO SCH (08:27)
[2018-10-24] MEDS: ROPINIROLE 1MG TABLET PO SCH ×2 (08:27→21:29)
[2018-10-24 14:09] LABS: GLUCOSE, CSF 102 mg/dL (40-80); TOTAL PROTEIN,CSF 89 mg/dL (15-45)
[2018-10-24 15:10] VITALS: BP 132/80
[2018-10-24 19:26] VITALS: BP 136/79
[2018-10-24] MEDS: TRAZODONE 50MG TABLET PO SCH (21:29)
[2018-10-25] MEDS: OXYcodone/APAP 10/325MG TABLET PO PRN ×4 (00:14→21:07)
[2018-10-25 00:29] VITALS: BP 116/65
[2018-10-25] MEDS: DEXAMETHASONE 4 MG/ML, 1ML IV SCH (03:48)
[2018-10-25] MEDS: INSULIN LISPRO 100 UNITS/ML, PEN SQ-INSULIN SCH ×4 (07:00→21:08)
[2018-10-25] MEDS: HEPARIN 5,000 UNITS/ML, 1ML SQ SCH ×3 (07:00→21:07)
[2018-10-25] MEDS: SENNA/DOCUSATE TABLET PO SCH (09:00)
[2018-10-25 09:12] VITALS: BP 118/71
[2018-10-25] MEDS: FAMOTIDINE 20 MG TABLET PO SCH (10:04)
[2018-10-25] MEDS: PREGABALIN 150 MG CAPSULE PO SCH ×2 (10:04→21:07)
[2018-10-25] MEDS: ROPINIROLE 1MG TABLET PO SCH ×2 (10:04→21:07)
[2018-10-25 14:57] VITALS: BP 116/73
[2018-10-25 19:31] VITALS: BP 128/80
[2018-10-25] MEDS: TRAZODONE 50MG TABLET PO SCH (21:07)
[2018-10-26 00:34] VITALS: BP 127/79
[2018-10-26] MEDS: OXYcodone/APAP 10/325MG TABLET PO PRN ×5 (01:32→20:44)
[2018-10-26] MEDS: HEPARIN 5,000 UNITS/ML, 1ML SQ SCH ×3 (05:56→22:46)
[2018-10-26 06:05] LABS: CHLORIDE 108 mmol/L (98-107)
[2018-10-26 06:10] LABS: ANION GAP 7 mmol/L (5-15); CALCIUM 9.2 mg/dL (8.5-10.1); CREATININE 0.67 mg/dL (0.7-1.3)
[2018-10-26 06:11] LABS: ALANINE AMINOTRANSFERASE 43 U/L (12-78); ALBUMIN 3.3 g/dL (3.4-5.0); ALKALINE PHOSPHATASE 85 U/L (45-117); BILIRUBIN,TOTAL 0.3 mg/dL (0.2-1.0); TOTAL PROTEIN 6.2 g/dL (6.4-8.2)
[2018-10-26] MEDS: INSULIN LISPRO 100 UNITS/ML, PEN SQ-INSULIN SCH ×4 (07:00→20:45)
[2018-10-26 07:06] VITALS: BP 134/84
[2018-10-26] MEDS: PREGABALIN 150 MG CAPSULE PO SCH ×2 (07:59→20:44)
[2018-10-26] MEDS: FAMOTIDINE 20 MG TABLET PO SCH (07:59)
[2018-10-26] MEDS: SENNA/DOCUSATE TABLET PO SCH (07:59)
[2018-10-26] MEDS: ROPINIROLE 1MG TABLET PO SCH ×2 (07:59→20:44)
[2018-10-26 13:52] VITALS: BP 125/77
[2018-10-26 20:00] VITALS: BP 123/76
[2018-10-26] MEDS: TRAZODONE 50MG TABLET PO SCH (20:44)
[2018-10-27 03:00] VITALS: BP 135/77
[2018-10-27] MEDS: OXYcodone/APAP 10/325MG TABLET PO PRN ×4 (05:12→19:37)
[2018-10-27] MEDS: INSULIN LISPRO 100 UNITS/ML, PEN SQ-INSULIN SCH ×4 (07:00→21:19)
[2018-10-27] MEDS: HEPARIN 5,000 UNITS/ML, 1ML SQ SCH ×3 (07:25→23:30)
[2018-10-27 08:37] VITALS: BP 105/68
[2018-10-27] MEDS: PREGABALIN 150 MG CAPSULE PO SCH ×2 (09:31→21:18)
[2018-10-27] MEDS: FAMOTIDINE 20 MG TABLET PO SCH (09:31)
[2018-10-27] MEDS: ROPINIROLE 1MG TABLET PO SCH ×2 (09:31→21:18)
[2018-10-27] MEDS: SENNA/DOCUSATE TABLET PO SCH (09:31)
[2018-10-27 14:02] VITALS: BP 111/69
[2018-10-27] MEDS: MAGNESIUM HYDROXIDE 8%, 30ML UDC PO SCH (14:32)
[2018-10-27] MEDS: GUAIFENESIN 200 MG TABLET PO SCH ×3 (14:33→21:17)
[2018-10-27] MEDS: DOXYCYCLINE 100MG CAP PO SCH (17:19)
[2018-10-27 19:22] VITALS: BP 120/73
[2018-10-27] MEDS ORDERED: INSULIN GLARGINE 100 UNITS/ML, PEN SQ-INSULIN SCH (21:00)
[2018-10-27] MEDS: DOCUSATE 100 MG CAPSULE PO SCH (21:17)
[2018-10-27] MEDS: TRAZODONE 50MG TABLET PO SCH (21:18)
[2018-10-28 01:25] VITALS: BP 121/74
[2018-10-28] MEDS: DOXYCYCLINE 100MG CAP PO SCH ×2 (05:34→18:32)
[2018-10-28] MEDS: GUAIFENESIN 200 MG TABLET PO SCH ×4 (05:34→20:47)
[2018-10-28] MEDS: OXYcodone/APAP 10/325MG TABLET PO PRN ×4 (05:35→19:26)
[2018-10-28] MEDS: INSULIN LISPRO 100 UNITS/ML, PEN SQ-INSULIN SCH ×4 (07:00→20:48)
[2018-10-28 07:10] VITALS: BP 144/88
[2018-10-28] MEDS: MAGNESIUM HYDROXIDE 8%, 30ML UDC PO SCH (09:00)
[2018-10-28] MEDS: HEPARIN 5,000 UNITS/ML, 1ML SQ SCH ×2 (09:11→17:12)
[2018-10-28] MEDS: DOCUSATE 100 MG CAPSULE PO SCH ×2 (09:11→20:47)
[2018-10-28] MEDS: SENNA/DOCUSATE TABLET PO SCH (09:12)
[2018-10-28] MEDS: ROPINIROLE 1MG TABLET PO SCH ×2 (09:12→20:48)
[2018-10-28] MEDS: PREGABALIN 150 MG CAPSULE PO SCH ×2 (09:12→20:48)
[2018-10-28] MEDS: FAMOTIDINE 20 MG TABLET PO SCH (09:12)
[2018-10-28 15:44] VITALS: BP 109/78
[2018-10-28 19:38] VITALS: BP 124/77
[2018-10-28] MEDS: TRAZODONE 50MG TABLET PO SCH (20:48)
[2018-10-28] MEDS ORDERED: INSULIN GLARGINE 100 UNITS/ML, PEN SQ-INSULIN SCH (21:00)
[2018-10-29] MEDS: HEPARIN 5,000 UNITS/ML, 1ML SQ SCH ×3 (01:29→17:23)
[2018-10-29 01:49] VITALS: BP 120/75
[2018-10-29] MEDS: OXYcodone/APAP 10/325MG TABLET PO PRN ×5 (02:11→18:32)
[2018-10-29] MEDS: DOXYCYCLINE 100MG CAP PO SCH ×2 (06:12→18:32)
[2018-10-29] MEDS: GUAIFENESIN 200 MG TABLET PO SCH ×4 (06:13→20:18)
[2018-10-29 06:24] VITALS: BP 128/84
[2018-10-29] MEDS: INSULIN LISPRO 100 UNITS/ML, PEN SQ-INSULIN SCH ×4 (07:00→20:17)
[2018-10-29] MEDS: PREGABALIN 150 MG CAPSULE PO SCH ×2 (09:28→20:17)
[2018-10-29] MEDS: SENNA/DOCUSATE TABLET PO SCH (09:28)
[2018-10-29] MEDS: DOCUSATE 100 MG CAPSULE PO SCH ×2 (09:28→20:18)
[2018-10-29] MEDS: MAGNESIUM HYDROXIDE 8%, 30ML UDC PO SCH (09:28)
[2018-10-29] MEDS: FAMOTIDINE 20 MG TABLET PO SCH (09:28)
[2018-10-29] MEDS: ROPINIROLE 1MG TABLET PO SCH ×2 (09:28→20:17)
[2018-10-29] MEDS: INSULIN GLARGINE 100 UNITS/ML, PEN SQ-INSULIN SCH ×2 (09:29→20:17)
[2018-10-29 12:14] VITALS: BP 122/64
[2018-10-29] MEDS ORDERED: POLYETHYLENE GLYCOL 17 GM PACKET NG ONE (15:00)
[2018-10-29 19:22] VITALS: BP 142/86
[2018-10-29] MEDS: TRAZODONE 50MG TABLET PO SCH (20:18)
[2018-10-30 00:34] VITALS: BP 120/85
[2018-10-30] MEDS: HEPARIN 5,000 UNITS/ML, 1ML SQ SCH ×3 (00:53→17:28)
[2018-10-30] MEDS: OXYcodone/APAP 10/325MG TABLET PO PRN ×5 (04:41→22:37)
[2018-10-30] MEDS: DOXYCYCLINE 100MG CAP PO SCH ×2 (05:36→17:28)
[2018-10-30] MEDS: GUAIFENESIN 200 MG TABLET PO SCH ×4 (05:36→22:36)
[2018-10-30 05:44] LABS: ALBUMIN 2.8 g/dL (3.4-5.0); ANION GAP 6 mmol/L (5-15); CALCIUM 8.7 mg/dL (8.5-10.1); CHLORIDE 105 mmol/L (98-107)
[2018-10-30 05:47] LABS: ALANINE AMINOTRANSFERASE 57 U/L (12-78); ALKALINE PHOSPHATASE 76 U/L (45-117); BILIRUBIN,TOTAL 0.3 mg/dL (0.2-1.0); CREATININE 0.78 mg/dL (0.7-1.3); TOTAL PROTEIN 5.4 g/dL (6.4-8.2)
[2018-10-30] MEDS: INSULIN LISPRO 100 UNITS/ML, PEN SQ-INSULIN SCH ×4 (07:00→22:35)
[2018-10-30 07:42] VITALS: BP 131/82
[2018-10-30] MEDS ORDERED: IMMUNE GLOB (GAMUNEX) 10GM/100ML IV SCH (09:00)
[2018-10-30] MEDS: MAGNESIUM HYDROXIDE 8%, 30ML UDC PO SCH (09:17)
[2018-10-30] MEDS: PREGABALIN 150 MG CAPSULE PO SCH ×2 (09:18→22:36)
[2018-10-30] MEDS: ROPINIROLE 1MG TABLET PO SCH ×2 (09:18→22:36)
[2018-10-30] MEDS: FAMOTIDINE 20 MG TABLET PO SCH (09:18)
[2018-10-30] MEDS: SENNA/DOCUSATE TABLET PO SCH (09:19)
[2018-10-30] MEDS: DOCUSATE 100 MG CAPSULE PO SCH ×2 (09:19→22:37)
[2018-10-30] MEDS: IMMUNE GLOBULIN IV SCH (11:47)
[2018-10-30 13:35] VITALS: BP 101/65
[2018-10-30 18:58] VITALS: BP 117/74
[2018-10-30] MEDS: TRAZODONE 50MG TABLET PO SCH (22:37)
[2018-10-31 01:32] VITALS: BP 107/65
[2018-10-31] MEDS: HEPARIN 5,000 UNITS/ML, 1ML SQ SCH ×3 (01:37→16:55)
[2018-10-31] MEDS: DOXYCYCLINE 100MG CAP PO SCH ×2 (05:13→16:55)
[2018-10-31] MEDS: GUAIFENESIN 200 MG TABLET PO SCH ×4 (05:14→21:28)
[2018-10-31] MEDS: OXYcodone/APAP 10/325MG TABLET PO PRN ×4 (05:14→21:20)
[2018-10-31] MEDS: INSULIN LISPRO 100 UNITS/ML, PEN SQ-INSULIN SCH ×4 (07:00→21:00)
[2018-10-31 07:10] VITALS: BP 101/68
[2018-10-31] MEDS: ROPINIROLE 1MG TABLET PO SCH ×2 (09:00→21:28)
[2018-10-31] MEDS: PREGABALIN 150 MG CAPSULE PO SCH ×2 (09:00→21:28)
[2018-10-31] MEDS: FAMOTIDINE 20 MG TABLET PO SCH (09:00)
[2018-10-31] MEDS: DOCUSATE 100 MG CAPSULE PO SCH ×2 (09:00→21:28)
[2018-10-31] MEDS: SENNA/DOCUSATE TABLET PO SCH (09:00)
[2018-10-31] MEDS: MAGNESIUM HYDROXIDE 8%, 30ML UDC PO SCH (09:00)
[2018-10-31] MEDS: IMMUNE GLOBULIN IV SCH (09:41)
[2018-10-31 12:45] VITALS: BP 113/77
[2018-10-31] MEDS: ACETAMINOPHEN 325 MG TABLET PO PRN (13:06)
[2018-10-31] MEDS: ONDANSETRON ODT 4 MG PO PRN (13:08)
[2018-10-31 19:55] VITALS: BP 102/78
[2018-10-31] MEDS: TRAZODONE 50MG TABLET PO SCH (21:28)
[2018-11-01 00:33] VITALS: BP 115/82
[2018-11-01] MEDS: HEPARIN 5,000 UNITS/ML, 1ML SQ SCH (01:00)
[2018-11-01] MEDS: OXYcodone/APAP 10/325MG TABLET PO PRN ×4 (04:57→17:49)
[2018-11-01] MEDS: GUAIFENESIN 200 MG TABLET PO SCH ×4 (05:39→20:44)
[2018-11-01] MEDS: DOXYCYCLINE 100MG CAP PO SCH ×2 (05:40→17:49)
[2018-11-01] MEDS: INSULIN LISPRO 100 UNITS/ML, PEN SQ-INSULIN SCH ×4 (07:00→21:00)
[2018-11-01 08:04] VITALS: BP 93/63
[2018-11-01] MEDS: SENNA/DOCUSATE TABLET PO SCH (09:20)
[2018-11-01] MEDS: PREGABALIN 150 MG CAPSULE PO SCH ×2 (09:20→20:44)
[2018-11-01] MEDS: DOCUSATE 100 MG CAPSULE PO SCH ×2 (09:20→20:44)
[2018-11-01] MEDS: FAMOTIDINE 20 MG TABLET PO SCH (09:20)
[2018-11-01] MEDS: ROPINIROLE 1MG TABLET PO SCH ×2 (09:20→20:44)
[2018-11-01] MEDS: MAGNESIUM HYDROXIDE 8%, 30ML UDC PO SCH (09:20)
[2018-11-01] MEDS: ENOXAPARIN 40 MG/0.4 ML SQ SCH (09:21)
[2018-11-01] MEDS: IMMUNE GLOBULIN IV SCH (09:41)
[2018-11-01 14:58] VITALS: BP 100/66
[2018-11-01 19:52] VITALS: BP 105/63
[2018-11-01] MEDS: TRAZODONE 50MG TABLET PO SCH (20:44)
[2018-11-02 00:46] VITALS: BP 125/70
[2018-11-02] MEDS: OXYcodone/APAP 10/325MG TABLET PO PRN ×4 (02:52→16:39)
[2018-11-02] MEDS: DOXYCYCLINE 100MG CAP PO SCH ×2 (05:36→18:28)
[2018-11-02] MEDS: GUAIFENESIN 200 MG TABLET PO SCH ×4 (05:36→20:44)
[2018-11-02] MEDS: INSULIN LISPRO 100 UNITS/ML, PEN SQ-INSULIN SCH ×4 (07:00→21:00)
[2018-11-02 07:57] VITALS: BP 118/71
[2018-11-02] MEDS: MAGNESIUM HYDROXIDE 8%, 30ML UDC PO SCH (09:00)
[2018-11-02] MEDS: IMMUNE GLOBULIN IV SCH (10:09)
[2018-11-02] MEDS: ROPINIROLE 1MG TABLET PO SCH ×2 (10:10→20:44)
[2018-11-02] MEDS: PREGABALIN 150 MG CAPSULE PO SCH ×2 (10:10→20:44)
[2018-11-02] MEDS: FAMOTIDINE 20 MG TABLET PO SCH (10:11)
[2018-11-02] MEDS: SENNA/DOCUSATE TABLET PO SCH (10:12)
[2018-11-02] MEDS: DOCUSATE 100 MG CAPSULE PO SCH ×2 (10:12→20:44)
[2018-11-02] MEDS: ENOXAPARIN 40 MG/0.4 ML SQ SCH (11:24)
[2018-11-02 14:35] VITALS: BP 96/59
[2018-11-02 19:09] VITALS: BP 94/65
[2018-11-02] MEDS: TRAZODONE 50MG TABLET PO SCH (20:44)
[2018-11-03 01:13] VITALS: BP 104/68
[2018-11-03] MEDS: OXYcodone/APAP 10/325MG TABLET PO PRN ×5 (01:13→19:37)
[2018-11-03] MEDS: DOXYCYCLINE 100MG CAP PO SCH ×2 (05:37→18:15)
[2018-11-03] MEDS: GUAIFENESIN 200 MG TABLET PO SCH ×4 (05:37→20:38)
[2018-11-03] MEDS: INSULIN LISPRO 100 UNITS/ML, PEN SQ-INSULIN SCH ×4 (07:00→20:39)
[2018-11-03 07:40] VITALS: BP 99/64
[2018-11-03] MEDS: MAGNESIUM HYDROXIDE 8%, 30ML UDC PO SCH (09:00)
[2018-11-03] MEDS: IMMUNE GLOBULIN IV SCH (09:09)
[2018-11-03] MEDS: DOCUSATE 100 MG CAPSULE PO SCH ×2 (09:11→20:38)
[2018-11-03] MEDS: PREGABALIN 150 MG CAPSULE PO SCH ×2 (09:11→20:38)
[2018-11-03] MEDS: SENNA/DOCUSATE TABLET PO SCH (09:11)
[2018-11-03] MEDS: ROPINIROLE 1MG TABLET PO SCH ×2 (09:11→20:38)
[2018-11-03] MEDS: FAMOTIDINE 20 MG TABLET PO SCH (09:11)
[2018-11-03] MEDS: ENOXAPARIN 40 MG/0.4 ML SQ SCH (09:12)
[2018-11-03] MEDS ORDERED: GUAI200T3 PO (10:19)
[2018-11-03 12:18] VITALS: BP 109/68
[2018-11-03] MEDS: TRAZODONE 50MG TABLET PO SCH (20:38)
[2018-11-03 20:53] VITALS: BP 102/67
[2018-11-04 02:28] VITALS: BP 128/65
[2018-11-04] MEDS: OXYcodone/APAP 10/325MG TABLET PO PRN ×4 (02:30→15:18)
[2018-11-04] MEDS: GUAIFENESIN 200 MG TABLET PO SCH ×3 (06:28→15:18)
[2018-11-04] MEDS: DOXYCYCLINE 100MG CAP PO SCH (06:28)
[2018-11-04] MEDS: INSULIN LISPRO 100 UNITS/ML, PEN SQ-INSULIN SCH ×2 (07:00→10:54)
[2018-11-04 07:57] VITALS: BP 107/69
[2018-11-04] MEDS: MAGNESIUM HYDROXIDE 8%, 30ML UDC PO SCH (08:32)
[2018-11-04] MEDS: SENNA/DOCUSATE TABLET PO SCH (08:33)
[2018-11-04] MEDS: DOCUSATE 100 MG CAPSULE PO SCH (08:33)
[2018-11-04] MEDS: FAMOTIDINE 20 MG TABLET PO SCH (08:34)
[2018-11-04] MEDS: ENOXAPARIN 40 MG/0.4 ML SQ SCH (08:34)
[2018-11-04] MEDS: ROPINIROLE 1MG TABLET PO SCH (08:34)
[2018-11-04] MEDS: PREGABALIN 150 MG CAPSULE PO SCH (08:34)
[2018-11-04 13:04] VITALS: BP 94/62
== END 2018-11-04 16:50 | DRG 73 ==
LOC: ED 17:12 → EDIP 18:32 → 3NE 20:08
PROVIDERS: ADMIT Internal Medicine; ATTEND Internal Medicine
PROC: 009U3ZX Drainage of Spinal Canal, Percutaneous Approach, Diagnostic (ICD-10-PCS; principal; 2018-10-24)
PROC: B01B1ZZ Fluoroscopy of Spinal Cord using Low Osmolar Contrast (ICD-10-PCS; 2018-10-24)
PROC: 4A0F33Z Measurement of Musculoskeletal Contractility, Percutaneous Approach (ICD-10-PCS; 2018-10-28)
PROC: 4A0 Measurement and Monitoring, Physiological Systems, Measurement (ICD-10-PCS; 2018-10-28)
DX: G61.81 Chronic inflammatory demyelinating polyneuritis (principal); R53.2 Functional quadriplegia; G95.20 Unspecified cord compression; D62 Acute posthemorrhagic anemia; M48.061 Spinal stenosis, lumbar region without neurogenic claudication; E11.22 Type 2 diabetes mellitus with diabetic chronic kidney disease; E11.65 Type 2 diabetes mellitus with hyperglycemia; T38.0X5A Adverse effect of glucocorticoids and synthetic analogues, initial encounter; F03.90 Unspecified dementia, unspecified severity, without behavioral disturbance, psychotic disturbance, mood disturbance, and anxiety; J45.909 Unspecified asthma, uncomplicated; G89.29 Other chronic pain; K59.00 Constipation, unspecified; I25.10 Atherosclerotic heart disease of native coronary artery without angina pectoris; K57.30 Diverticulosis of large intestine without perforation or abscess without bleeding; M48.04 Spinal stenosis, thoracic region; M50.30 Other cervical disc degeneration, unspecified cervical region; M51.36 Other intervertebral disc degeneration, lumbar region; N18.3 Chronic kidney disease, stage 3 (moderate); Z79.52 Long term (current) use of systemic steroids; Y92.89 Other specified places as the place of occurrence of the external cause; Z98.1 Arthrodesis status; Z80.0 Family history of malignant neoplasm of digestive organs; Z82.49 Family history of ischemic heart disease and other diseases of the circulatory system; Z86.73 Personal history of transient ischemic attack (TIA), and cerebral infarction without residual deficits; Z87.01 Personal history of pneumonia (recurrent); Z87.11 Personal history of peptic ulcer disease; Z87.442 Personal history of urinary calculi
CPT/HCPCS: 36415; 70551; 71045; 72156; 72157; 72158; 77003; 80048; 80053; 81001; 82040; 82042; 82784; 82945; 82962; 83873; 83880; 84157; 84166; 84443; 85025; 85651; 86592; 86617; 86645; 86695; 86696; 86762; 86777; 86778; 87070; 87086; 87205; 87252; 87798; 89051; 93005; 95860; 95886; 95907; 99285; A9585; G0378; J1100; J1561; J1644; J1650; J2930; Q0162; J1815

== ENCOUNTER → 2019-03-20 | Outpatient (CLI) | payer MEDICARE ==
[~2019-03-20] MED LIST changes: +ATOR80TA PO; +CALC200T3 PO; +CELE100C PO; +DIPH50CA41 PO; +DOCU-131 PO; +GUAI200T37 PO; +HYDR-826 PO; +IPRA30SP NAS; +LATA7.5D EACHEYE; +LORA10TA72 PO; +ONDA4TAB7 PO; +POLY17PO5 PO; +PREG150C PO; +PREG75CA PO; +SERT50TA28 PO; +TAMS-11 PO
== END | disposition home or self-care (01) ==
LOC: RAD 12:36
PROVIDERS: ATTEND Physician Assistant Surgical
DX: M48.03 Spinal stenosis, cervicothoracic region (principal); M47.813 Spondylosis without myelopathy or radiculopathy, cervicothoracic region; J45.909 Unspecified asthma, uncomplicated; M25.78 Osteophyte, vertebrae; M19.90 Unspecified osteoarthritis, unspecified site; Z87.891 Personal history of nicotine dependence; Z88.1 Allergy status to other antibiotic agents
CPT/HCPCS: 72141; 72146; 72148

== ENCOUNTER 2019-04-04 18:14 | Emergency (ER) | payer MEDICARE ==
[~2019-04-04] VITALS: Ht 182.9 cm; Wt 82.0 kg
--- NOTE | 2019-04-04 18:35 | NUR ---
68 YR OLD MALE ARRIVED VIA EMS FROM [facility]. PER REPORT PT RECEIVED UNKNOWN AMT AND TYPE OF INSULIN TODAY. (PT NON DIABETIC) AROUND NOON PT WAS FOUND TO BE HYPOTENSIVE 80'S/60'S, BRADYCARDIC 40-50'S. RA SATS 90'S. 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 PT HAS 24G IV IN LH. PT WITH DE LE[place]N CATH IN PLACE. PT PLACED ON MONITORS, AUTO BP IN PLACE.
[2019-04-04] MEDS ORDERED: SODIUM CHLORIDE 0.9% 1,000ML IVBOLUS ONE (19:00)
[2019-04-04] MEDS ORDERED: SODIUM CHLORIDE FLUSH 10ML SYR IVF ONE (19:00)
[2019-04-04 19:03] LABS: BASOPHILS # (AUTO) 0.02 x10^3/uL (0-0.1); BASOPHILS % (AUTO) 0 % (0-1); EOSINOPHILS % (AUTO) 0 % (1-7); LYMPHOCYTES # (AUTO) 0.76 x10^3/uL (1-3.4); LYMPHOCYTES % (AUTO) 10 % (22-44); MD NO; MEAN CORPUSCULAR HEMOGLOBIN 30.8 pg (27.5-34.5); MEAN CORPUSCULAR HGB CONC 32.9 g/dL (33.2-36.2); MEAN CORPUSCULAR VOLUME 93.4 fL (81-97); MEAN PLATELET VOLUME 9.6 fL (7.4-10.4); MONOCYTES # (AUTO) 0.46 x10^3/uL (0.2-0.8); MONOCYTES % (AUTO) 6 % (2-9); NEUTROPHILS # (AUTO) 6.81 x10^3/uL (1.8-6.8); NEUTROPHILS % (AUTO) 85 % (42-75); PLATELET COUNT 190 x10^3/uL (130-400); RED BLOOD COUNT 3.98 x10^6/uL (4.38-5.82); RED CELL DISTRIBUTION WIDTH 15.1 % (9.4-14.8)
[2019-04-04 19:10] LABS: ALANINE AMINOTRANSFERASE 40 U/L (12-78); ALBUMIN 2.9 g/dL (3.4-5.0); ANION GAP 3 mmol/L (5-15); CALCIUM 8.6 mg/dL (8.5-10.1); CHLORIDE 106 mmol/L (98-107); CREATININE 0.63 mg/dL (0.7-1.3); T4 (THYROXINE) 9.4 mcg/dL (4.5-12.1)
[2019-04-04 19:15] LABS: ALKALINE PHOSPHATASE 141 U/L (45-117); BILIRUBIN,TOTAL 0.5 mg/dL (0.2-1.0); TOTAL PROTEIN 6.4 g/dL (6.4-8.2); TROPONIN I < 0.015 ng/mL (0.000-0.045)
--- NOTE | 2019-04-04 19:17 | NUR ---
BEDSIDE REPORT RECEIVED FROM JOSEF PAIZ. ASSUMED CARE OF PT. PT CLEANED FROM BOWEL MOVEMENT. MULTIPLE PRESSURE ULCERS NOTED TO BUTTOCK AREA. SEVERAL OPEN WOUNDS NOTED TO LEFT SIDE. REDNESS ALSO NOTED. PT BEDDING CHANGED AND PT PLACED ON RIGHT SIDE, PADDED WITH PILLOWS. PRIOR RN NOTED HEELS TO BE RED WELL.
--- NOTE | 2019-04-04 19:18 | NUR ---
REPORT TO MEME BAHENA
[2019-04-04] MEDS ORDERED: OXYcodone/APAP 10/325MG TABLET ONE (20:27)
[2019-04-04] MEDS ORDERED: OXYcodone/APAP 10/325MG TABLET PO ONE (20:30)
--- NOTE | 2019-04-04 20:33 | NUR ---
PT MEDICATED FOR PAIN PER EMAR. 5 RIGHTS ADDRESSED. FOOD ALSO PROVIDED, OK PER DR. ALBA. PT DENIES ANY OTHER NEEDS AT THIS TIME. AWAITING DISPOSITION FROM [facility]
[2019-04-04 21:18] VITALS: BP 117/66
--- NOTE | 2019-04-04 21:39 | NUR ---
PT TO BE DISCHARGED. [facility] TRANSPORT BEING ARRANGED.
--- NOTE | 2019-04-04 21:46 | NUR ---
SPOKE WITH [facility] WHOM STATE DR SMITH IS THE PTS SUPERVISING PHYSICIAN. THEY ARE AWARE PT WILL BE RETURNING VIA AMBULANCE. TRANSPORT REQUEST FAXED TO [facility].
--- NOTE | 2019-04-04 21:59 | NUR ---
SPOKE TO [facility]. ETA [id number]
--- NOTE | 2019-04-04 22:26 | NUR ---
REPORT TO JOSEF WRIGHT AT [facility].
== END 2019-04-04 22:47 | disposition home or self-care (01) ==
LOC: ED 21:36
DX: R55 Syncope and collapse (principal); E11.649 Type 2 diabetes mellitus with hypoglycemia without coma; J45.909 Unspecified asthma, uncomplicated; Z87.891 Personal history of nicotine dependence
CPT/HCPCS: 36415; 71045; 80053; 83735; 83880; 84436; 84443; 84484; 85025; 93005; 96360; 96361; 99284; J7030

== ENCOUNTER 2019-05-30 13:51 | Outpatient (CLI) | payer MEDICARE ==
[2019-06-03] MEDS ORDERED: TYLENOL SUPPOSITORY RC (13:05)
[2019-06-03] MEDS ORDERED: CLINDAMYCIN LOTION TP (13:05)
[2019-06-03] MEDS ORDERED: ACET325T14 PO (13:05)
[2019-06-03] MEDS ORDERED: ASCO500T7 PO (13:05)
[2019-06-03] MEDS ORDERED: TAMS-11 PO (13:06)
[2019-06-03] MEDS ORDERED: MULT-658 PO (13:12)
[2019-06-03] MEDS ORDERED: PREG150C PO (13:12)
[2019-06-03] MEDS ORDERED: MORPHINE ER PO (13:12)
[2019-06-03] MEDS ORDERED: OXYC-307 PO (13:12)
== END 2019-05-30 23:59 | disposition home or self-care (01) ==
LOC: RAD 13:51
PROVIDERS: ATTEND Neurological Surgery
DX: M51.36 Other intervertebral disc degeneration, lumbar region (principal); M25.78 Osteophyte, vertebrae; M12.88 Other specific arthropathies, not elsewhere classified, other specified site; M43.27 Fusion of spine, lumbosacral region; N20.0 Calculus of kidney
CPT/HCPCS: 72131

== ENCOUNTER 2020-12-07 12:42 | Emergency (ER) | payer MEDICARE, MEDICAID ==
[~2020-12-07] VITALS: Ht 182.9 cm; Wt 90.0 kg
[~2020-12-07 12:42] MED LIST changes: +ACET325T14 PO; +APIX2.5T PO; +ASCO500T7 PO; +CEFT2VIA53 IV; +CLINDAMYCIN LOTION TP; +Dakin's Solution 1/4 Strength EXT; +ENOX40SY4 SQ; +ERTA1VIA IV; +FLUC200T PO; +HYDR28.423 TP; +LOPE2CAP PO; +MAGN24003 PO; +MORPHINE ER PO; +MULT-658 PO; +NITR0.4T28 SL; +OMEP-110 PO; -ONDA8TAB15 PO; +ONDA8TAB18 PO; -OXYC-306 PO; -OXYC-307 PO; +OXYC-380 PO; +OXYC1TAB17 PO; +PIPE4.5V6 IV; +SULF1TAB24 PO; -TRAZ-137 PO; +TRAZ-175 PO; +TYLENOL SUPPOSITORY RC; +VANC1VIA36 PO
--- NOTE | 2020-12-07 13:15 | NUR ---
TRAVON FROM [facility] AFTER HAVING PER STAFF AMS. PT USUALLY AAOX4 HOWEVER TODAY PT DROWSY AND THOUGHT HE WAS AT [place]. PT RECENTLY D/C FROM [place] FOR UROSEPSIS. PT WITH PAIN PUMP AND HX OF PARAPLEGIA. PT POSTIONED TO COMFORT. ATTACHED TO MONITORS. VSS. NADN. LANDRY ELIZONDO TO BEDSIDE FOR EVALUATION
[2020-12-07 13:42] LABS: MICROSCOPIC INDICATED
[2020-12-07 13:48] LABS: BASOPHILS % (AUTO) 2 % (0-1); EOSINOPHILS % (AUTO) 1 % (1-7); LYMPHOCYTES % (AUTO) 16 % (22-44); MEAN CORPUSCULAR HEMOGLOBIN 29.7 pg (27.5-34.5); MEAN CORPUSCULAR HGB CONC 33.7 g/dL (33.2-36.2); MEAN PLATELET VOLUME 9.2 fL (7.4-10.4); MONOCYTES % (AUTO) 4 % (2-9); NEUTROPHILS % (AUTO) 76 % (42-75); PLATELET COUNT 231 x10^3/uL (130-400); RED BLOOD COUNT 4.27 x10^6/uL (4.38-5.82); RED CELL DISTRIBUTION WIDTH 14.6 % (9.4-14.8)
[2020-12-07 13:53] LABS: ALANINE AMINOTRANSFERASE 47 U/L (12-78); ALKALINE PHOSPHATASE 181 U/L (45-117); BILIRUBIN,TOTAL 0.5 mg/dL (0.2-1.0); CREATININE 0.88 mg/dL (0.7-1.3); TOTAL PROTEIN 6.6 g/dL (6.4-8.2)
[2020-12-07 13:55] LABS: CHLORIDE 107 mmol/L (98-107)
[2020-12-07 13:56] LABS: ANION GAP < 1 mmol/L (5-15)
--- NOTE | 2020-12-07 14:00 | NUR ---
PT ASLEEP WITH EVEN AND UNLABORED RESPIRATIONS. LD. PRATIBHA.
--- NOTE | 2020-12-07 15:17 | NUR ---
Break RN note: IV abx initiated per MAR. Pt resting in bed with eyes closed, resp even and unlabored, NADN. Pt's family member at bedside, POC discussed.
[2020-12-07] MEDS ORDERED: ERTAPENEM 1 GM in SODIUM CHLORIDE 0.9% 50 ML IV SCH (15:30)
--- NOTE | 2020-12-07 17:33 | NUR ---
pt asleep with even and unlabored respirations. [email or web address].
--- NOTE | 2020-12-07 17:56 | NUR ---
report called to mavis nicholas at [facility].
--- NOTE | 2020-12-07 19:01 | NUR ---
report to Cruz nicholas.
[2020-12-07 19:35] VITALS: BP 129/63
--- NOTE | 2020-12-07 19:36 | NUR ---
PT ASLEEP IN BED, VSS, SIDE RAILS UP, BED IN LOW POSITION
== END 2020-12-07 14:00 | disposition home or self-care (01) ==
LOC: ED 13:53
DX: R41.82 Altered mental status, unspecified (principal); M54.9 Dorsalgia, unspecified; G89.29 Other chronic pain; R10.9 Unspecified abdominal pain
CPT/HCPCS: 36415; 71045; 80053; 81001; 85025; 87086; 93005; 96365; 99285; J1335